=== PATIENT | male | born 1990 ===

== ENCOUNTER 2017-06-29 12:01 | Emergency (ER) | payer OTHER ==
--- NOTE | 2017-06-29 12:41 | ED PDOC ---
Arrival/HPI - General Chief Complaint: Chest Pain Time Seen by Provider: 06/29/17 12:13 Historian: Patient - History of Present Illness Narrative History of Present Illness (Text): 06/29/17 12:36 patient is a 27M with a CC of chest pressure and palpitations for 2 weeks. He states the pressure is constant but has not been worsening. He denies any SOB. He also complains of palpitations that are intermittent and occur mostly at night and at lunchtime. He denies any diaphoresis but is complaining that it radiates to his neck at the time when he is experiencing palpitations. Patient states that he is under many stressors at the present time including his brother being sick with cancer, a new child, job and school. He denies any fever , nausea, vomiting. No other complaints at this time. Past Medical History - Infectious Disease Hx of Infectious Diseases: None - Tetanus Immunization Tetanus Immunization: Unknown - Past Medical History Past Medical History: No Previous - Cardiac Hx Cardiac Disorders: No - Pulmonary Hx Respiratory Disorders: No - Neurological Hx Neurological Disorder: Yes Hx Migraine: Yes - HEENT Hx HEENT Disorder: No - Renal Hx Renal Disorder: No - Endocrine/Metabolic Hx Endocrine Disorders: No - Hematological/Oncological Hx Blood Disorders: No - Integumentary Hx Dermatological Disorder: No - Musculoskeletal/Rheumatological Hx Musculoskeletal Disorders: No Hx Falls: No - Gastrointestinal Hx Gastrointestinal Disorders: Yes (GI BLEED 06-08-16) Hx Gastroesophageal Reflux: Yes Other/Comment: GASTRITIS - Genitourinary/Gynecological Hx Genitourinary Disorders: No - Psychiatric Hx Psychophysiologic Disorder: No Hx Depression: No Hx Emotional Abuse: No Hx Physical Abuse: No Hx Substance Use: No - Past Surgical History Past Surgical History: No Previous - Anesthesia Hx Anesthesia: No Hx Anesthesia Reactions: No Hx Malignant Hyperthermia: No - Suicidal Assessment Feels Threatened In Home Enviroment: No Family/Social History - Physician Review Nursing Documentation Reviewed: Yes Family/Social History: Unknown Family HX Smoking Status: Never Smoked Hx Alcohol Use: Yes Hx Substance Use: No Allergies/Home Meds Allergies/Adverse Reactions: Allergies No Known Allergies Allergy (Verified 06/08/16 15:38) Review of Systems - Review of Systems Constitutional: Normal Eyes: Normal ENT: Normal Respiratory: absent: SOB Cardiovascular: Chest Pain, Palpitations. absent: Syncope Gastrointestinal: Normal. absent: Diarrhea, Nausea, Vomiting Genitourinary Male: Normal Musculoskeletal: Normal Skin: Normal Neurological: Normal Endocrine: Normal. absent: Diaphoresis Hemo/Lymphatic: Normal Psychiatric: Anxiety Physical Exam Vital Signs Reviewed: Yes Vital Signs Temp Pulse Resp BP Pulse Ox 06/29/17 13:16 99 H 122/76 06/29/17 12:10 97.9 F 112 H 20 160/75 H 98 Temperature: Afebrile Blood Pressure: Hypertensive Pulse: Tachycardic Respiratory Rate: Normal Appearance: Positive for: Well-Appearing, Non-Toxic, Comfortable Pain Distress: None Mental Status: Positive for: Alert and Oriented X 3 - Systems Exam Head: Present: Atraumatic, Normocephalic Pupils: Present: PERRL Extroacular Muscles: Present: EOMI Conjunctiva: Present: Normal Mouth: Present: Moist Mucous Membranes Neck: Present: Normal Range of Motion Respiratory/Chest: Present: Clear to Auscultation, Good Air Exchange. No: Respiratory Distress, Accessory Muscle Use Cardiovascular: Present: Regular Rate and Rhythm, Normal S1, S2, Tachycardic. No: Murmurs Abdomen: Present: Tenderness, Normal Bowel Sounds. No: Distention, Peritoneal Signs Upper Extremity: Present: Normal Inspection. No: Cyanosis, Edema Lower Extremity: Present: Normal Inspection. No: Edema Neurological: Present: GCS=15, CN II-XII Intact, Speech Normal Skin: Present: Warm, Dry, Normal Color. No: Rashes Psychiatric: Present: Alert, Oriented x 3, Normal Insight, Normal Concentration Medical Decision Making ED Course and Treatment: 06/29/17 12:44 27M with chest pressure and palpitations - cxr, EKG - cardiac iso - cbc, cmp, mag - Imdur 10mg -reeval and dispo 06/29/17 13:38 All tests including cxr and EKG are negative All blood tests were unremarkable Patient tolerated Imdur without a problem will discharge the patient with imdur and intrcution to follow up with primary doctor for further recommendations - Lab Interpretations Lab Results: 06/29/17 12:35 06/29/17 12:35 Lab Results 06/29/17 12:35: Sodium 143, Potassium 3.7, Chloride 104, Carbon Dioxide 27, Anion Gap 16, BUN 13, Creatinine 0.8, Est GFR ( Amer) > 60, Est GFR (Non- Af Amer) > 60, Random Glucose 98, Calcium 10.4, Magnesium 2.2, Total Bilirubin 0.6, AST 47, ALT 98 H, Alkaline Phosphatase 114, Lactate Dehydrogenase 428, Total Creatine Kinase 100, Troponin I < 0.01, Total Protein 8.1, Albumin 4.7, Globulin 3.4, Albumin/Globulin Ratio 1.4 06/29/17 12:35: WBC 7.1, RBC 5.33, Hgb 15.6, Hct 46.5, MCV 87.2, MCH 29.3, MCHC 33.5, RDW 12.5, Plt Count 227, MPV 11.1 H, Gran % 52.2, Lymph % (Auto) 38.2 H, [place] % (Auto) 6.2 H, Eos % (Auto) 3.1, Baso % (Auto) 0.3, Gran # 3.69, Lymph # ( Auto) 2.7, [place] # (Auto) 0.4, Eos # (Auto) 0.2, Baso # (Auto) 0.02 - RAD Interpretation Radiology Orders: 06/29/17 12:31 CHEST PORTABLE [RAD] Stat - Medication Orders Current Medication Orders: Discontinued Medications Propranolol HCl (Inderal) 10 mg PO STAT STA Stop: 06/29/17 12:43 Last Admin: 06/29/17 13:16 Dose: 10 mg MAR Pulse and Blood Pressure Document 06/29/17 13:16 ALETA (Rec: 06/29/17 13:16 ALETA [id number]) Pulse Pulse Rate (60-90) 99 Blood Pressure Blood Pressure (100/60-150/90) 122/76 Disposition/Present on Arrival - Present on Arrival Any Indicators Present on Arrival: No History of DVT/PE: No History of Uncontrolled Diabetes: No Urinary Catheter: No History of Decub. Ulcer: No History Surgical Site Infection Following: None - Disposition Have Diagnosis and Disposition been Completed?: Yes Diagnosis: Palpitations, Chest pain, Anxiety Disposition: HOME/ ROUTINE Disposition Time: 13:41 Patient Plan: Discharge Patient Problems: Current Active Problems Problem Status Onset Anxiety Acute Chest pain Acute Palpitations Acute Condition: STABLE Discharge Instructions (ExitCare): Chest Pain (ED) Additional Instructions: please follow up with primary doctor in 1-2 weeks for further evaluation of anxiety and palpitations Please take imdur as prescribed as needed for anxiety, palpitations please come back to ED if symptoms worsen or new symptoms arise. Prescriptions: Propranolol [Inderal] 10 mg PO BID PRN #10 tab PRN Reason: anxiety Forms: [email or web address] ([place])
--- NOTE | 2017-06-29 12:48 | RAD ---
HISTORY: chest pain, palpitations COMPARISON: No prior. FINDINGS: LUNGS: No active pulmonary disease. PLEURA: No significant pleural effusion identified, no pneumothorax apparent. CARDIOVASCULAR: Normal. OSSEOUS STRUCTURES: No significant abnormalities. VISUALIZED UPPER ABDOMEN: Normal. OTHER FINDINGS: None. IMPRESSION: No active disease.
[2017-06-29 12:56] VITALS: BMI 32.1
[2017-06-29 12:57] VITALS: TEMP 97.9; O2SAT 98
[2017-06-29 13:02] LABS: BASO # 0.02 K/mm3 (0.0-2.0); BASO % 0.3 % (0.0-3.0); EOS # 0.2 (0.0-0.7); EOS % 3.1 % (1.5-5.0); GRAN # 3.69 (1.4-6.5); GRAN % 52.2 % (50.0-68.0); HEMOGLOBIN 15.6 g/dL (14.0-18.0); LYMPH # 2.7 (1.2-3.4); LYMPH % 38.2 % (22.0-35.0); MEAN CELL VOLUME 87.2 fl (80.0-105.0); MEAN CORPUSCULAR HEMOGLOBIN 29.3 pg (25.0-35.0); MEAN CORPUSCULAR HGB CONC 33.5 g/dl (31.0-37.0); MEAN PLATELET VOLUME 11.1 fl (7.0-11.0); MONO # 0.4 (0.1-0.6); MONO % 6.2 % (1.0-6.0); RBC 5.33 10^6/uL (3.5-6.1); RED CELL DISTRIBUTION WIDTH 12.5 % (11.5-14.5); WHITE BLOOD COUNT 7.1 10^3/ul (4.5-11.0)
[2017-06-29 13:11] LABS: ALB/GLOB RATIO 1.4 (1.1-1.8); ALBUMIN 4.7 g/dL (3.0-4.8); ALT/SGPT 98 U/L (7-56); AST/SGOT 47 U/L (17-59); BLOOD UREA NITROGEN 13 mg/dL (7-21); CALCIUM 10.4 mg/dL (8.4-10.5); GFR AFRICAN-AMERICAN > 60; GFR NON-AFRICAN AMERICAN > 60
[2017-06-29 13:22] LABS: TROPONIN I < 0.01 ng/mL
[2017-06-29 14:12] VITALS: BP 130/57; PULSE 95; RESP 18
--- NOTE | 2017-06-29 18:23 | CARD ---
APPROVED REPORT EKG Measurement Heart [id number] <Conclusion> Sinus tachycardia Nonspecific T wave abnormality Abnormal ECG
== END 2017-06-29 14:56 | disposition home or self-care (01) ==
LOC: ED 12:01
DX: F41.9 Anxiety disorder, unspecified (principal); R00.2 Palpitations; R07.9 Chest pain, unspecified